=== PATIENT | female | born 1995 | race Caucasian/White ===

== ENCOUNTER 2017-08-14 15:35 | Outpatient (CLI) | payer OTHER ==
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
== END 2017-08-14 15:36 | disposition home or self-care (01) ==
LOC: SCSMRI 15:35
PROVIDERS: ATTEND Neurological Surgery
DX: M48.02 Spinal stenosis, cervical region (principal); M53.82 Other specified dorsopathies, cervical region
CPT/HCPCS: 72050; 72141